=== PATIENT | female | born 1995 | race Caucasian/White ===

== ENCOUNTER 2020-06-23 09:11 | Emergency (ER) | payer MEDICARE, MEDICAID, SELFPAY ==
[2020-06-23 09:26] VITALS: BP 112/68; PULSE 80; RESP 16; TEMP 36.7; O2SAT 98; BMI 38.9
--- NOTE | 2020-06-23 09:33 | XR_ITS ---
EXAMINATION: LEFT FOOT SERIES. LEFT ANKLE SERIES. CLINICAL INFORMATION: Injury 3 weeks prior. COMPARISON: None TECHNIQUE: 3 views of the left foot including the ankle and 2 additional views of the left ankle. FINDINGS: Left ankle: There is mild generalized soft tissue swelling. The bone and joints are unremarkable. Left foot: There is flattening of the head of the second metatarsal with this subtle lucency suspicious for subchondral fracture or avascular necrosis. The remaining bones joints soft tissues are unremarkable. XR/XR ankle LT min 3V IMPRESSION: Mild generalized soft tissue swelling of the left ankle. Findings in the head of the second metatarsal most compatible with Freiberg's infraction versus subchondral fracture of the metatarsal head
--- NOTE | 2020-06-23 09:38 | XR_ITS ---
EXAMINATION: LEFT FOOT SERIES. LEFT ANKLE SERIES. CLINICAL INFORMATION: Injury 3 weeks prior. COMPARISON: None TECHNIQUE: 3 views of the left foot including the ankle and 2 additional views of the left ankle. FINDINGS: Left ankle: There is mild generalized soft tissue swelling. The bone and joints are unremarkable. Left foot: There is flattening of the head of the second metatarsal with this subtle lucency suspicious for subchondral fracture or avascular necrosis. The remaining bones joints soft tissues are unremarkable. XR/XR foot LT min 3V IMPRESSION: Mild generalized soft tissue swelling of the left ankle. Findings in the head of the second metatarsal most compatible with Freiberg's infraction versus subchondral fracture of the metatarsal head
--- NOTE | 2020-06-23 09:40 | ED.LOWEXIN ---
HPI - Extremity Injury (Lower) General Chief Complaint: Extremity Injury, Lower Stated Complaint: inj left foot Time Seen by Provider: 06/23/20 09:30 Source: patient Mode of arrival: ambulatory History of Present Illness HPI Narrative: 25-year-old female presented to ED complaining of left ankle/foot pain x3 weeks s/p mechanical fall when picking up children. reports fell in a ditch, twisting foot/ankle, was seen at [facility] s/p injury, had negative ankle x-rays, given Aircast/crutches without symptomatic improvement. Reports continued pain in foot radiating up LLE with associated burning/stabbing pain. Denies numbness, weakness, fever, injury to other area MD complaint: ankle injury and foot injury Related Data Allergies Allergy/AdvReac Type Severity Reaction Status Date / Time No Known Allergies Allergy Verified 06/23/20 09:25 Review of Systems Review of Systems: Constitutional: No Weight loss, No Fever, No Chills Musculoskeletal: + joint pain, No Myalgias, + Joint Swelling Skin: No Skin Lesions, No rash Neuro: No Weakness, +tingling Yes all other systems are reviewed and are negative [facility] Past Medical History Attestation statement: The following information was validated with the patient. Surgical History (Updated 06/23/20 @ 09:29 by Tabitha Carreno) H/O hand surgery H/O umbilical hernia repair Previous section Social History Social History Advance Directives: No Advance Directives Information Provided: Yes Physical Exam Vital Signs: Vital Signs: Last Vital Signs Temp 98.0 F 06/23/20 09:26 Pulse 80 06/23/20 09:26 Resp 16 06/23/20 09:26 BP 112/68 06/23/20 09:26 Pulse Ox 98 06/23/20 09:26 Body Mass Index 38.9 Const: General: cooperative and healthy appearing Orientation/consciousness: patient oriented x3 Limitations: no limitations HENMT: Head: Yes normal to inspection Ears: hearing grossly normal bilaterally General nose exam: Normal external nose present Face and sinus: Yes normal facial exam Eyes: General: appearance normal, both eyes and all related structures EOM: EOMs intact bilaterally Neck: Neck: Yes normal visual inspection Resp: Effort & Inspection: normal respiratory effort Cardio: Peripheral pulses: dorsalis pedis present Skin: Rashes: no rashes Wounds: no wounds Neuro: General: patient oriented x3 Extrem: Other: Left ankle and foot with swelling, no erythema/ecchymosis. +ttp to top of foot. Limited ROM intact to ankle & 3-5th toes secondary to pain/swelling. NV intact Course Course Course Narrative: -x-ray showing Freiberg's infraction versus subchondral fracture of the metatarsal head >> will place patient in a posterior short leg splint, applied with crutches, and make nonweightbearing to follow-up with orthopedics MDM - Extremity Injury (Lower) MDM Narrative Medical decision making narrative: Concern for possible stress fracture versus MSK pain/strain Plan: Will obtain repeat ankle/foot x-rays Discharge Plan Discharge Clinical Impression: Closed fracture of head of metatarsal Patient Disposition: Home, Self-Care Instructions: Foot Fracture in Adults (ED) Additional Instructions: You have a broken toe Your placed in a splint in the ED, keep splint drying clean DO NOT BEAR ANY WEIGHT ON YOUR LEFT FOOT SEE THE ENVIRONMENTAL COMPLIANCE INSPECTOR IN 1 WEEK USE CRUTCHES AT ICE AND ELEVATE YOUR FOOT/ANKLE TAKE TYLENOL AND MOTRIN AT HOME FOR PAIN IF SYMPTOMS PERSIST OR WORSEN, PAIN BECOMES UNBEARABLE, YOU DEVELOP NUMBNESS/TINGLING, WEAKNESS, OR FOOT BECOMES DISCOLORED RETURN TO THE ED Referrals: Physician,Unknown [Primary Care Provider] - 2 days Jeison Wallis PA-C [Physician Javascript Ui Developer] - 1 week
== END 2020-06-23 11:43 | disposition home or self-care (01) ==
PROVIDERS: Emergency Provider Emergency Medicine
DX: S92.302A Fracture of unspecified metatarsal bone(s), left foot, initial encounter for closed fracture (principal); M79.672 Pain in left foot; X50.1XXA Overexertion from prolonged static or awkward postures, initial encounter; Y93.01 Activity, walking, marching and hiking; Y92.9 Unspecified place or not applicable; Y99.9 Unspecified external cause status
CPT/HCPCS: 29515; 73610; 73630; 99283

== ENCOUNTER 2020-06-27 13:47 | Emergency (ER) | payer MEDICARE, MEDICAID, SELFPAY ==
[2020-06-27 15:27] VITALS: BP 113/45; PULSE 71; RESP 16; TEMP 37.4; O2SAT 98; BMI 38.9
--- NOTE | 2020-06-27 15:32 | ED.LOWEXIN ---
HPI - Extremity Injury (Lower) General Chief Complaint: Extremity Injury, Lower Stated Complaint: lt foot injury Time Seen by Provider: 06/27/20 15:32 History of Present Illness HPI Narrative: Patient complains of left foot pain for 3 weeks after a fall She was seen here several days ago and told she may have a fracture in the foot and was given a posterior splint and crutches and in the rain the splint got wet and she had to remove her splint, she is here to get the splint replaced, no new injury Related Data Previous Rx's Medication Instructions Recorded oxycodone-acetaminophen [Percocet] 1 tab PO Q6H PRN #10 tab 06/27/20 Allergies Allergy/AdvReac Type Severity Reaction Status Date / Time No Known Allergies Allergy Verified 06/27/20 15:27 Review of Systems Review of Systems: No fever no chills no numbness no weakness no tingling no skin rash Yes all other systems are reviewed and are negative PMFSH Past Medical History Source: nursing notes reviewed Surgical History (Updated 06/23/20 @ 09:29 by Tabitha Carreno) H/O hand surgery H/O umbilical hernia repair Previous section Social History Social History Smoking Status: Current every day smoker Substance Use Type: Marijuana Advance Directives: No Advance Directives Information Provided: Yes Physical Exam Vital Signs: Vital Signs: Last Vital Signs Temp 99.3 F 06/27/20 15:27 Pulse 71 06/27/20 15:27 Resp 16 06/27/20 15:27 BP 113/45 L 06/27/20 15:27 Pulse Ox 98 06/27/20 15:27 Body Mass Index 38.9 General appearance no acute distress neck is supple Respiratory no acute distress Extremities the right foot and ankle are mildly swollen with a normal skin color there are no wounds or lacerations it is neurovascular intact there is tenderness over the dorsum of the foot Skin no rashes Course Course Course Narrative: I reviewed the x-ray reports from the previous visit and we replaced the posterior splint with a walking boot and the patient does have a follow-up appointment in 2 weeks with Orthopedics and I did give her some extra numbers in casr she could be seen sooner elsewhere MDM - Extremity Injury (Lower) Imaging Data Left foot and ankle x-ray: Radiologist's impression: : Injury 3 weeks prior. COMPARISON: None TECHNIQUE: 3 views of the left foot including the ankle and 2 additional views of the left ankle. FINDINGS: Left ankle: There is mild generalized soft tissue swelling. The bone and joints are unremarkable. Left foot: There is flattening of the head of the second metatarsal with this subtle lucency suspicious for subchondral fracture or avascular necrosis. The remaining bones joints soft tissues are unremarkable. XR/XR foot LT min 3V IMPRESSION: Mild generalized soft tissue swelling of the left ankle. Findings in the head of the second metatarsal most compatible with Freiberg's infraction versus subchondral fracture of the metatarsal Discharge Plan Discharge Clinical Impression: Fracture of left foot Patient Disposition: Home, Self-Care Additional Instructions: You can follow with Orthopedics in 2 weeks as scheduled but if you want to try for sooner appointment you can try [facility], or the warehouse and receiving supervisor whose number I will give you or you can get a referral from her doctor Prescriptions: New oxycodone-acetaminophen [Percocet] 5-325 mg tablet 1 tab PO Q6H PRN (Reason: pain) Qty: 10 RF: 0 Referrals: Jonny Spencer DPM [Physician] - None (possible freiberg infarction vs subchondal fracture 2 metatarsal head) Interventions: ED Discharge Assessment Last Done: 06/27/20 16:02 Discharge Date/Time: 06/27/20 16:02
== END 2020-06-27 16:02 | disposition home or self-care (01) ==
PROVIDERS: Emergency Provider Emergency Medicine
DX: S92.902A Unspecified fracture of left foot, initial encounter for closed fracture (principal); M79.672 Pain in left foot; W01.0XXA Fall on same level from slipping, tripping and stumbling without subsequent striking against object, initial encounter; Y93.9 Activity, unspecified; Y92.9 Unspecified place or not applicable; Y99.9 Unspecified external cause status; F17.210 Nicotine dependence, cigarettes, uncomplicated; Z71.6 Tobacco abuse counseling; Z79.899 Other long term (current) drug therapy
CPT/HCPCS: 99283

== ENCOUNTER → 2020-06-30 13:21 | Outpatient (BNVA) | payer MEDICARE, MEDICAID, SELFPAY | PROVIDERS: Visit Provider Physician Assistant | DX: S93.629A Sprain of tarsometatarsal ligament of unspecified foot, initial encounter (principal) | CPT/HCPCS: 99202 ==

== ENCOUNTER 2020-07-12 10:27 | Outpatient (REF) | payer MEDICARE, MEDICAID, SELFPAY ==
--- NOTE | 2020-07-12 10:31 | MR_ITS ---
EXAMINATION: MR FOOT WITHOUT CONTRAST, LEFT CLINICAL INFORMATION: Dorsal left foot pain radiating proximally. Mild bruising. Difficulty weightbearing. Pain and swelling. COMPARISON: Left foot and ankle radiographs dated 06/23/2020 TECHNIQUE: Multisequence MR images of the left foot were obtained without contrast on a high-field strength scanner. FINDINGS: BONE: There is flattening of the 2nd metatarsal head with linear low T1/T2 signal and prominent marrow edema as seen on the prior radiographs. Marrow edema extends proximally within the 2nd metatarsal diaphysis where there is mild periosteal reaction. 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 No additional abnormal marrow signal. MUSCLES/TENDONS: The visualized flexor and extensor tendons are intact. LIGAMENTS: The Lisfranc ligament is intact. SOFT TISSUES: Within normal limits. MR/MR foot LT wo con IMPRESSION: 1. Findings in the 2nd metatarsal head, similar when compared to the prior radiographs. Prominent marrow edema extending proximally within the 2nd metatarsal with associated periosteal reaction. 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 2. Otherwise unremarkable examination.
== END 2020-07-12 10:28 | disposition home or self-care (01) ==
LOC: HO.MRI 10:27
PROVIDERS: Visit Provider Physician Assistant
DX: S93.622A Sprain of tarsometatarsal ligament of left foot, initial encounter (principal)
CPT/HCPCS: 73718

== ENCOUNTER → 2020-07-20 13:26 | Outpatient (BNVA) | payer MEDICARE, MEDICAID, SELFPAY | PROVIDERS: Visit Provider Physician Assistant | DX: M92.70 Juvenile osteochondrosis of metatarsus, unspecified foot (principal) | CPT/HCPCS: 99212 ==

== ENCOUNTER → 2022-08-20 14:36 | Outpatient (BNVA) | payer SELFPAY | PROVIDERS: Visit Provider Internal Medicine | DX: Z02.79 Encounter for issue of other medical certificate (principal) ==

== ENCOUNTER 2024-06-21 16:10 | Emergency (ER) | payer OTHER, SELFPAY ==
--- NOTE | ~2024-06-21 | CT_ITS ---
EXAMINATION: CT HEAD WITHOUT CONTRAST CLINICAL INFORMATION: 29 year-old female with pain following injury COMPARISON: None available. TECHNIQUE: Contiguous axial imaging was performed from the skull base to vertex without intravenous administration of contrast. This CT examination was performed using dose optimization techniques as appropriate, variously including the following: *Automated exposure control *Adjustment of mA and/or kV according to patient size (this includes techniques or standardized protocols for targeted exams where dose is matched to indication/reason for exam; i.e. extremities or head) *Use of iterative reconstruction technique DLP: 617.07 mGy-cm FINDINGS: There is no evidence of intracranial hemorrhage, masses, mass effect, midline shift. Ventricles and sulci are appropriate for age. Cortical medullary junction is preserved. Paranasal sinuses are well-aerated. There is no depressed fractures seen. CT/CT head/brain wo IV con IMPRESSION: No acute intracranial pathology. Unremarkable study Electronically signed by: Luc Diaz MD 06/21/2024 05:01 PM [facility] J
--- NOTE | ~2024-06-21 | CT_ITS ---
EXAMINATION: CT CERVICAL SPINE WITHOUT CONTRAST CLINICAL INFORMATION: Pain following injury COMPARISON: None available. TECHNIQUE: 2 mm sections through the cervical spine followed by coronal and sagittal reconstructions without contrast. This CT examination was performed using dose optimization techniques as appropriate, variously including the following: *Automated exposure control *Adjustment of mA and/or kV according to patient size (this includes techniques or standardized protocols for targeted exams where dose is matched to indication/reason for exam; i.e. extremities or head) *Use of iterative reconstruction technique DLP: 529.88 mGy-cm FINDINGS: There is loss of cervical lordosis. Vertebral bodies are well aligned and intervertebral disks are preserved. Pedicles are intact. Soft tissues unremarkable. Visualized apices are clear. Soft tissue of neck including thyroid gland unremarkable. CT/CT cervical spine wo IV con IMPRESSION: Abnormal findings. Loss of cervical lordosis likely related to muscle spasm Fleischner guidelines were followed. Electronically signed by: Luc Diaz MD 06/21/2024 05:03 PM JOSE J
[2024-06-21 16:15] VITALS: BP 127/72; PULSE 95; RESP 16; TEMP 36.7; O2SAT 97; BMI 38.5
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
[2024-06-21 18:25] VITALS: BP 127/72; PULSE 95; RESP 16; TEMP 36.7; O2SAT 97
== END 2024-06-21 18:25 | disposition home or self-care (01) ==
LOC: HO.ED 18:16
PROVIDERS: Emergency Provider Emergency Medicine
DX: M54.2 Cervicalgia (principal); R51.9 Headache, unspecified; Z79.899 Other long term (current) drug therapy
CPT/HCPCS: 70450; 72125; 99282; 99283